=== PATIENT | male | born 1990 ===

== ENCOUNTER 2017-01-22 18:39 | Emergency (ER) | payer OTHER ==
[2017-01-22 19:01] VITALS: BP 119/71; PULSE 69; RESP 16; O2SAT 100
[2017-01-22] MEDS ORDERED: Simethicone 80 mg Chewtab PO STA (19:25)
--- NOTE | 2017-01-22 19:36 | ED PDOC ---
HPI: Abdomen Time Seen by Provider: 01/22/17 19:10 Chief Complaint (Nursing): Abdominal Pain Chief Complaint (Provider): Abdominal "Gas pain" and difficulty breathing History Per: Patient History/Exam Limitations: no limitations Onset/Duration Of Symptoms: Days (1 year) Additional Complaint(s): Patient is a 26 y/o male with a past medical history of gastritis who presents to the ED complaining of abdominal bloating, "gas pain", and difficulty breathing for the past year, with associated anxiety. Patient states he has been takin steroids for his symptoms, but has not followed up with a [employer]. PCP: NO FAMILY PROVIDER Past Medical History Reviewed: Historical Data, Nursing Documentation, Vital Signs Vital Signs: Last Vital Signs Temp 98.4 F 01/22/17 19:56 Pulse 69 01/22/17 18:56 Resp 16 01/22/17 18:56 BP 119/71 01/22/17 18:56 Pulse Ox 100 01/22/17 19:41 - Medical History PMH: No Chronic Diseases - Family History Family History: States: No Known Family Hx - Home Medications Home Medications: Ambulatory Orders Medication Instructions Recorded Ondansetron [Zofran] 4 mg PO Q8H #12 tab 01/22/17 Simethicone [Gas Relief] 80 mg PO BID #30 tab.chew 01/22/17 - Allergies Allergies/Adverse Reactions: Allergies Allergy/AdvReac Type Severity Reaction Status Date / Time No Known Allergies Allergy Verified 01/22/17 19:00 Review of Systems ROS Statement: Except As Marked, All Systems Reviewed And Found Negative Respiratory: Positive for: Other (Difficulty breathing) Gastrointestinal: Positive for: Abdominal Pain ("Gas pain"), Other (Abdominal Bloating) Physical Exam - Reviewed Nursing Documentation Reviewed: Yes Vital Signs Reviewed: Yes - Physical Exam Appears: Positive for: No Acute Distress (Anxious appearing) Head Exam: Positive for: ATRAUMATIC, NORMOCEPHALIC Skin: Positive for: Normal Color, Warm, Dry Eye Exam: Positive for: Normal appearance Neck: Positive for: Normal, Painless ROM, Supple Cardiovascular/Chest: Positive for: Regular Rate, Rhythm. Negative for: Murmur Respiratory: Positive for: Normal Breath Sounds. Negative for: Respiratory Distress Gastrointestinal/Abdominal: Positive for: Normal Exam, Soft. Negative for: Tenderness Back: Positive for: Normal Inspection. Negative for: L CVA Tenderness, R CVA Tenderness, Vertebral Tenderness Extremity: Positive for: Normal ROM. Negative for: Pedal Edema, Deformity Neurologic/Psych: Positive for: Alert, Oriented (x3). Negative for: Motor/ Sensory Deficits - Laboratory Results Result Diagrams: 01/22/17 17:30 01/22/17 17:30 - ECG O2 Sat by Pulse Oximetry: 100 (RA) Pulse Ox Interpretation: Normal Medical Decision Making Medical Decision Makin:25 Initial Impression: Gas vs Gastritis vs Colon spasm vs Anxiety Initial Plan: --Labs --Obstructive Series X-Ray --Mylicon Chew Tab 80 mg PO --Zofran Tab 4 mg PO --Urinalysis 20:30 Patient is refusing x-ray at this time, states that he feels complete resolution of symptoms after medications and wishes to followup as an outpatient with Dr. Crowell, GI communication consultant. Will d/c home with rx for simethicone and zofran, return precautions discussed. Will d/c home. Scribe Attestation: Documented by Josie Russo, acting as a scribe for Antonio Moreira MD Provider Scribe Attestation: All medical record entries made by the Scribe were at my direction and personally dictated by me. I have reviewed the chart and agree that the record accurately reflects my personal performance of the history, physical exam, medical decision making, and the department course for this patient. I have also personally directed, reviewed, and agree with the discharge instructions and disposition. Disposition - Clinical Impression Clinical Impression: Abdominal bloating - Disposition Referrals: Fausto Crowell MD, PhD [Staff Provider] - Disposition: Routine/Home Disposition Time: 20:33 Condition: IMPROVED Prescriptions: Ondansetron [Zofran] 4 mg PO Q8H #12 tab Simethicone [Gas Relief] 80 mg PO BID #30 tab.chew Instructions: Gas and Bloating (ED) Forms: [employer] (Vietnamese)
[2017-01-22 19:50] LABS: RBC URINE 2 /hpf (0-3); URINE BACTERIA RARE (<OCC); URINE BILIRUBIN NEGATIVE (NEGATIVE); URINE BLOOD NEGATIVE (NEGATIVE); URINE COLOR YELLOW (YELLOW); URINE GLUCOSE (UA) NEG (Normal); URINE KETONE NEGATIVE (NEGATIVE); URINE LEUKOCYTE ESTERASE NEG Leu/uL (Negative); URINE PROTEIN NEGATIVE (NEGATIVE); URINE UROBILINOGEN 0.2-1.0 mg/dL (0.2-1.0); WBC URINE < 1 /hpf (0-5)
[2017-01-22 19:51] LABS: BASO % 0.5 % (0.0-2.0); EOS # 0.4 K/uL (0.0-0.7); EOS % 4.9 % (0.0-4.0); HEMATOCRIT 43.9 % (35.0-51.0); LYMPH # 2.6 K/uL (1.0-4.3); LYMPH % 29.7 % (20.0-40.0); MEAN CELL VOLUME 89.4 fl (80.0-94.0); MEAN CORPUSCULAR HEMOGLOBIN 30.1 pg (27.0-31.0); MEAN CORPUSCULAR HGB CONC 33.7 g/dL (33.0-37.0); MEAN PLATELET VOLUME 7.3 fl (7.2-11.7); MONO # 0.9 K/uL (0.0-0.8); MONO % 10.7 % (0.0-10.0); NEUT # 4.7 K/uL (1.8-7.0); NEUT % 54.2 % (50.0-75.0); NRBC % 0.1 % (0.0-0.0); RED CELL DISTRIBUTION WIDTH 13.7 % (11.5-14.5); WHITE BLOOD COUNT 8.7 K/uL (4.8-10.8)
[2017-01-22 20:00] LABS: ALB/GLOB RATIO 1.5 (1.0-2.1); ALKALINE PHOSPHATASE 54 U/L (38-126); ALT/SGPT 36 U/L (21-72); AST/SGOT 25 U/L (17-59); BILIRUBIN,TOTAL 0.6 mg/dl (0.2-1.3); BLOOD UREA NITROGEN 16 mg/dl (9-20); CALCIUM 9.2 mg/dL (8.4-10.2); CARBON DIOXIDE 24 mmol/L (22-30); CHLORIDE 108 mmol/L (98-107); GFR AFRICAN-AMERICAN > 60; GLUCOSE,RANDOM 95 mg/dL (75-110); LIPASE 74 U/L (23-300); POTASSIUM 3.5 MMOL/L (3.6-5.0); SODIUM 142 mmol/l (132-148); TOTAL PROTEIN 7.6 G/DL (6.3-8.2)
[2017-01-22 20:26] VITALS: TEMP 98.4
== END 2017-01-22 20:38 | disposition home or self-care (01) ==
LOC: H.ER 18:39
DX: R14.0 Abdominal distension (gaseous) (principal)